=== PATIENT | female | born 1970 | race Two or more races ===

== ENCOUNTER 2021-09-26 12:06 | Emergency (ER) | payer MEDICAID ==
[2021-09-26 16:47] VITALS: BP 135/79
== END 2021-09-26 16:49 | disposition home or self-care (01) ==
LOC: ER 12:06
DX: N83.202 Unspecified ovarian cyst, left side (principal); R93.89 Abnormal findings on diagnostic imaging of other specified body structures; N93.9 Abnormal uterine and vaginal bleeding, unspecified
CPT/HCPCS: 36415; 76830; 76856; 84702